=== PATIENT | male | born 1935 | race American Indian/Alaskan Native ===

== ENCOUNTER 2019-04-24 19:56 | Emergency (ER) | payer MEDICARE, OTHER ==
[~2019-04-24] VITALS: Ht 177.8 cm; Wt 81.7 kg
[~2019-04-24 19:56] MED LIST: Hydrocodone-Ap1 EA23 PO; Motion Sickness25 M1 PO; Percocet 10-321 EACH PO; SIMV40 PO; Valium5 MG PO; Zofran Odt4 MG SL
[2019-04-24 20:37] LABS: BASOPHILS ABSOLUTE AUTO 0.02 K/mm3 (0.00-0.23); BASOPHILS PERCENT AUTO 0 % (0-2); EOSINOPHILS ABSOLUTE AUTO 0.35 K/mm3 (0.00-0.68); EOSINOPHILS PERCENT AUTO 5 % (0-6); Hematocrit 40.8 % (37.0-53.0); Hemoglobin 13.5 g/dL (13.5-17.5); IMMATURE GRAN ABSOLUTE AUTO 0.01 K/mm3 (0.00-0.10); IMMATURE GRAN PERCENT AUTO 0 % (0-1); LYMPHOCYTES PERCENT AUTO 19 % (21-46); MONOCYTES ABSOLUTE AUTO 0.44 K/mm3 (0.16-1.47); MONOCYTES PERCENT AUTO 6 % (4-13); Mean Corpuscular HGB 32.3 pg (26.0-34.0); Mean Corpuscular HGB Conc 33.1 g/dL (31.5-36.5); Mean Corpuscular Volume 98 fL (80-100); Mean Platelet Volume 9.9 fL (9.1-12.4); NEUTROPHILS ABSOLUTE AUTO 5.25 K/mm3 (1.96-9.15); NEUTROPHILS PERCENT AUTO 70 % (41-73); Platelet Count 253 K/mm3 (150-400); RDW Standard Deviation 43.3 fL (35.1-46.3); Red Blood Cell Count 4.18 M/mm3 (4.30-5.90); White Blood Cell Count 7.47 K/mm3 (4.00-11.30)
[2019-04-24 20:55] LABS: Alanine Aminotransfer (ALT/SGP 25 U/L (12-78); Albumin, Blood 3.6 g/dL (3.4-5.0); Alk Phos 81 U/L (50-136); Anion Gap 4 mmol/L (6-16); Aspartate Aminotrans (AST/SGOT 19 U/L (12-37); Bilirubin, Total 0.3 mg/dL (0.1-1.0); Blood Urea Nitrogen 16 mg/dL (8-24); Bun/Creatinine Ratio 18.4 (12.0-20.0); CO2, Blood 28 mmol/L (21-32); Calcium, Blood 8.9 mg/dL (8.5-10.1); Chloride, Blood 108 mmol/L (98-108); Creatinine, Blood 0.87 mg/dL (0.60-1.20); Globulin, Blood 3.5 g/dL (2.2-4.0); Glomerular Filtration Rate >60 (60-); Glucose, Blood 181 mg/dL (70-99); Potassium, Blood 3.9 mmol/L (3.5-5.5); Sodium, Blood 140 mmol/L (136-145); Total Protein, Blood 7.1 g/dL (6.4-8.2)
[2019-04-24 22:32] LABS: Source, Urine Clean Catch
[2019-04-24 22:36] LABS: Bilirubin, Urine Neg (Neg); Blood, Urine 4+ (Neg); Glucose Qualitative, Urine Neg (Neg); Ketones, Urine 1+ (Neg); Leukocyte Esterase, Urine 1+ (Neg); Nitrite, Urine Neg (Neg); Protein, Urine 1+ (Neg); Specific Gravity, Urine 1.025 (1.003-1.022); Urobilinogen, Urine NORM (Normal)
[2019-04-24 22:45] LABS: Appearance, Urine Hazy (Clear); Color, Urine Yellow (P-Yellow)
[2019-04-24 22:46] LABS: Bacteria Rare /hpf; Mucus Mod (0-Heavy); Red Blood Cells, Urine TNTC /hpf (0-2); Squamous Epithelial Cells Not Seen /hpf (Few)
[2019-04-24] MEDS ORDERED: Percocet 5-3251 EACH PO (23:19)
[2019-04-24] MEDS ORDERED: ONDA4ODT MM (23:19)
== END 2019-04-25 00:07 | disposition home or self-care (01) ==
LOC: ER 19:56
PROVIDERS: Emergency Medicine
DX: N13.2 Hydronephrosis with renal and ureteral calculous obstruction (principal); Z87.442 Personal history of urinary calculi; Z79.899 Other long term (current) drug therapy
CPT/HCPCS: 36415; 74176; 80053; 81001; 85025; 96361; 96374; 96375; 99284-25; A9270; A9270-GY; J1170; J1885; J2405; J7030

== ENCOUNTER 2022-02-05 08:28 | Inpatient (IN) | payer MEDICARE, OTHER ==
[~2022-02-05] VITALS: Ht 177.8 cm; Wt 77.9 kg
[~2022-02-05 08:28] MED LIST changes: +BLINK EYE DROPS BOTHEYES; +HYDSUL200 PO; +MULVITA PO; +ONDA4ODT MM; +Percocet 5-3251 EACH PO; +TURMERIC500 M2 PO; +Vitamin B-12100 MCG PO; +ZINC15 PO; +[UNRECOGNIZED DRUG - OTHER] BOTHEYES; +[UNRECOGNIZED DRUG - OTHER] PO
[2022-02-06 05:47] LABS: BASOPHILS ABSOLUTE AUTO 0.01 K/mm3 (0.00-0.23); BASOPHILS PERCENT AUTO 0 % (0-2); EOSINOPHILS PERCENT AUTO 0 % (0-6); Hematocrit 35.1 % (37.0-53.0); Hemoglobin 11.6 g/dL (13.5-17.5); IMMATURE GRAN ABSOLUTE AUTO 0.03 K/mm3 (0.00-0.10); IMMATURE GRAN PERCENT AUTO 0 % (0-1); LYMPHOCYTES ABSOLUTE AUTO 0.51 K/mm3 (0.84-5.20); LYMPHOCYTES PERCENT AUTO 5 % (21-46); MONOCYTES ABSOLUTE AUTO 0.52 K/mm3 (0.16-1.47); MONOCYTES PERCENT AUTO 5 % (4-13); Mean Corpuscular Volume 97 fL (80-100); Mean Platelet Volume 10.7 fL (9.1-12.4); NEUTROPHILS ABSOLUTE AUTO 8.48 K/mm3 (1.96-9.15); NEUTROPHILS PERCENT AUTO 89 % (41-73); Platelet Count 201 K/mm3 (150-400); RDW Coefficient Variation 12.2 % (11.7-14.2); RDW Standard Deviation 43.7 fL (35.1-46.3); Red Blood Cell Count 3.62 M/mm3 (4.30-5.90); White Blood Cell Count 9.55 K/mm3 (4.00-11.30)
[2022-02-06 05:49] LABS: Bun/Creatinine Ratio 28.1 (12.0-20.0); Calcium, Blood 8.7 mg/dL (8.5-10.1); Creatinine, Blood 0.82 mg/dL (0.60-1.20); Potassium, Blood 4.9 mmol/L (3.5-5.5)
== END 2022-02-06 10:40 | disposition home or self-care (01) | DRG 483 ==
LOC: SURS 08:28 → PRE IP 10:00 → SURS 16:21
PROVIDERS: ADMIT Orthopaedic Surgery
PROC: 0RRJ0JZ Replacement of Right Shoulder Joint with Synthetic Substitute, Open Approach (ICD-10-PCS; principal; 2022-02-05 10:00)
DX: M19.011 Primary osteoarthritis, right shoulder (principal); Z87.442 Personal history of urinary calculi; G47.30 Sleep apnea, unspecified; M35.3 Polymyalgia rheumatica; Z90.49 Acquired absence of other specified parts of digestive tract; Z98.890 Other specified postprocedural states; Z96.651 Presence of right artificial knee joint; Z79.899 Other long term (current) drug therapy; Z88.8 Allergy status to other drugs, medicaments and biological substances
CPT/HCPCS: 36415; 73030; 80048; 85025; 97110; 97161; 97165; 97530; 97535; A9270; C1713; C1776; J0171; J0690; J0735; J1100; J1885; J2370; J2405; J2704; J2795; J3010; J7120

== ENCOUNTER → 2022-06-25 | Outpatient (CLI) | payer MEDICARE, OTHER | LOC: LAB 07:56 → PLD 07:56 → LAB SHORT 07:56 | DX: L72.11 Pilar cyst (principal) | CPT/HCPCS: 88304 ==

== ENCOUNTER 2025-01-23 08:23 | Observation (INO) | payer MEDICARE, OTHER ==
[~2025-01-23] VITALS: Ht 177.8 cm; Wt 75.8 kg
[~2025-01-23 08:23] MED LIST changes: +LOSARTAN POTASS25 M2 PO
[2025-01-23 09:22] LABS: BASOPHILS ABSOLUTE AUTO 0.01 K/mm3 (0.00-0.23); BASOPHILS PERCENT AUTO 0 % (0-2); EOSINOPHILS ABSOLUTE AUTO 0.05 K/mm3 (0.00-0.68); EOSINOPHILS PERCENT AUTO 1 % (0-6); Hematocrit 37.9 % (37.0-53.0); Hemoglobin 12.9 g/dL (13.5-17.5); IMMATURE GRAN ABSOLUTE AUTO 0.02 K/mm3 (0.00-0.10); IMMATURE GRAN PERCENT AUTO 0 % (0-1); LYMPHOCYTES ABSOLUTE AUTO 0.46 K/mm3 (0.84-5.20); LYMPHOCYTES PERCENT AUTO 8 % (21-46); MONOCYTES PERCENT AUTO 5 % (4-13); Mean Corpuscular HGB 33.2 pg (26.0-34.0); Mean Corpuscular Volume 98 fL (80-100); Mean Platelet Volume 10.2 fL (9.1-12.4); NEUTROPHILS ABSOLUTE AUTO 5.18 K/mm3 (1.96-9.15); NEUTROPHILS PERCENT AUTO 86 % (41-73); Platelet Count 215 K/mm3 (150-400); RDW Coefficient Variation 12.9 % (11.7-14.2); RDW Standard Deviation 46.2 fL (35.1-46.3); Red Blood Cell Count 3.88 M/mm3 (4.30-5.90); White Blood Cell Count 6.02 K/mm3 (4.00-11.30)
[2025-01-23] MEDS ORDERED: Ondansetron HCl 2 MG / ML 2ML Vial IV ONE (09:25)
[2025-01-23] MEDS ORDERED: NS 1,000 ML IV SCH (09:25)
[2025-01-23] MEDS ORDERED: Magnesium Sulf 2 GM/Water 50ML 50 ML IV ONE (09:25)
[2025-01-23 09:35] LABS: Albumin, Blood 3.1 g/dL (3.4-5.0); Albumin/Globulin Ratio 0.9 (0.8-1.8); Bilirubin, Total 0.8 mg/dL (0.1-1.0); Bun/Creatinine Ratio 32.4 (12.0-20.0); Calcium, Blood 8.5 mg/dL (8.5-10.1); Creatinine, Blood 1.11 mg/dL (0.60-1.20); Globulin, Blood 3.5 g/dL (2.2-4.0); Magnesium, Blood 2.5 mg/dL (1.6-2.4); Potassium, Blood 4.3 mmol/L (3.5-5.5); Total Protein, Blood 6.6 g/dL (6.4-8.2)
[2025-01-23 10:25] LABS: Influenza A, PCR NEGATIVE (NEGATIVE); Influenza B, PCR NEGATIVE (NEGATIVE); Resp Syncytial Virus, PCR NEGATIVE (NEGATIVE); SARS-Cov-2 (COVID-19) PCR, MMC NEGATIVE (NEGATIVE)
[2025-01-23 11:38] LABS: Source, Urine Clean Catch
[2025-01-23 11:45] LABS: Bilirubin, Urine Neg (Neg); Blood, Urine Neg (Neg); Glucose Qualitative, Urine Neg (Neg); Ketones, Urine Neg (Neg); Leukocyte Esterase, Urine Neg (Neg); Nitrite, Urine Neg (Neg); Protein, Urine 2+ (Neg); Specific Gravity, Urine 1.025 (1.003-1.022); Urobilinogen, Urine NORM (Normal)
[2025-01-23 11:51] LABS: Appearance, Urine Clear (Clear); Color, Urine Yellow (P-Yellow)
[2025-01-23 11:53] LABS: Bacteria Not Seen /hpf; Mucus Light (0-Heavy); Red Blood Cells, Urine Not Seen /hpf (0-2); Squamous Epithelial Cells Few /hpf (Few); White Blood Cells, Urine 0-2 /hpf (0-5)
[2025-01-23 20:36] VITALS: BP 137/51
[2025-01-23] MEDS ORDERED: Metoprolol Tartrate 25 MG Tab PO SCH (21:00)
[2025-01-23 23:52] VITALS: BP 111/57
[2025-01-24 04:08] VITALS: BP 122/43
--- NOTE | 2025-01-24 05:27 | NUR ---
SHIFT SUMMARY PT ADMITTED LAST EVENING FOR FATIGUE, WEAKNESS, AND BRADYCARDIA. PT ON TELEMETRY WITH SINUS RHYTHM WITH PVC'S AND OCCASSIONAL RUNS OF BIGEMINY. PVC'S NOT PURFUSING WITH APICAL AND RADIAL PULSE DOWN TO THE 30'S AND 40'S. PT STATES SOME DIZZINESS UPON STANDING, BUT UNSURE IF IT IS DUE TO HIS HEART RATE OR VERTIGO. PT KEPT ON BEDREST EXCEPT STANDING TO VOID AT SIDE OF BED WITH SBA. BED IN LOWEST POSITION, BED ALARM ON, CALL LIGHT WITHIN REACH, SIDERAILS UP X2.
[2025-01-24 07:17] LABS: BASOPHILS PERCENT AUTO 0 % (0-2); EOSINOPHILS ABSOLUTE AUTO 0.12 K/mm3 (0.00-0.68); EOSINOPHILS PERCENT AUTO 3 % (0-6); Hematocrit 36.1 % (37.0-53.0); Hemoglobin 12.1 g/dL (13.5-17.5); IMMATURE GRAN ABSOLUTE AUTO 0.01 K/mm3 (0.00-0.10); IMMATURE GRAN PERCENT AUTO 0 % (0-1); LYMPHOCYTES ABSOLUTE AUTO 1.01 K/mm3 (0.84-5.20); LYMPHOCYTES PERCENT AUTO 23 % (21-46); MONOCYTES ABSOLUTE AUTO 0.53 K/mm3 (0.16-1.47); MONOCYTES PERCENT AUTO 12 % (4-13); Mean Corpuscular HGB 33.2 pg (26.0-34.0); Mean Corpuscular HGB Conc 33.5 g/dL (31.5-36.5); Mean Corpuscular Volume 99 fL (80-100); Mean Platelet Volume 10.2 fL (9.1-12.4); NEUTROPHILS ABSOLUTE AUTO 2.79 K/mm3 (1.96-9.15); NEUTROPHILS PERCENT AUTO 63 % (41-73); Platelet Count 186 K/mm3 (150-400); RDW Coefficient Variation 12.7 % (11.7-14.2); RDW Standard Deviation 46.1 fL (35.1-46.3); Red Blood Cell Count 3.65 M/mm3 (4.30-5.90); White Blood Cell Count 4.46 K/mm3 (4.00-11.30)
[2025-01-24 07:20] VITALS: BP 117/65
[2025-01-24 07:43] LABS: Bun/Creatinine Ratio 34.8 (12.0-20.0); Calcium, Blood 8.2 mg/dL (8.5-10.1); Creatinine, Blood 0.98 mg/dL (0.60-1.20); Potassium, Blood 4.1 mmol/L (3.5-5.5)
[2025-01-24] MEDS ORDERED: Atorvastatin 10 MG Tab PO SCH (09:00)
[2025-01-24] MEDS ORDERED: Enoxaparin 40 MG/0.4 ML SYR SC SCH (09:00)
--- NOTE | 2025-01-24 09:00 | NUR ---
pt laying in bed awake a/ox4, but can be forgetful, pleasant and cooperative with care, follows commands well, denies pain, lungs are clear t/o,, resp even and unlabored, on r/a, no cough noted, hrr, tele in place running sr with bj pvcs rates drops low to 30's during the night, and 40's this am, piv to lac site is clear and patent, btx4, abd flat soft nontender, voids without diff, maew, ambulates with walker at baseline, does get some dizziness when up per report, bed alarm is activated, faviola, call light in reach.
[2025-01-24 11:38] VITALS: BP 136/67
[2025-01-24] MEDS ORDERED: METO25 PO (14:26)
--- NOTE | 2025-01-24 15:18 | NUR ---
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
== END 2025-01-24 15:00 | disposition home health service (06) ==
LOC: ER 08:23 → MEDS 14:34 → ERHOLD 14:34 → MEDS 20:34
PROVIDERS: Student in an Organized Health Care Education/Training Program; ADMIT Internal Medicine
DX: I49.3 Ventricular premature depolarization (principal); I10 Essential (primary) hypertension; H81.10 Benign paroxysmal vertigo, unspecified ear; G47.33 Obstructive sleep apnea (adult) (pediatric); G25.0 Essential tremor; N40.0 Benign prostatic hyperplasia without lower urinary tract symptoms; E78.5 Hyperlipidemia, unspecified; R73.03 Prediabetes; M79.7 Fibromyalgia; M06.9 Rheumatoid arthritis, unspecified; M48.00 Spinal stenosis, site unspecified; R53.83 Other fatigue; Z88.8 Allergy status to other drugs, medicaments and biological substances; Z79.899 Other long term (current) drug therapy
CPT/HCPCS: 0241U; 36415; 71045; 80048; 80053; 81001; 83735; 83880; 84484; 85025; 93005; 93010; 96365; 96366; 96372; 96375; 97110; 97116; 97162; 99285-25; A9270; G0378; J1650; J2405; J3475; J7030

== ENCOUNTER 2025-01-26 10:42 | Emergency (ER) | payer MEDICARE, OTHER ==
[~2025-01-26] VITALS: Ht 177.8 cm; Wt 77.6 kg
[~2025-01-26 10:42] MED LIST changes: +METO25 PO
[2025-01-26 11:38] LABS: BASOPHILS ABSOLUTE AUTO 0.01 K/mm3 (0.00-0.23); BASOPHILS PERCENT AUTO 0 % (0-2); EOSINOPHILS ABSOLUTE AUTO 0.16 K/mm3 (0.00-0.68); EOSINOPHILS PERCENT AUTO 3 % (0-6); Hematocrit 34.9 % (37.0-53.0); Hemoglobin 11.5 g/dL (13.5-17.5); IMMATURE GRAN ABSOLUTE AUTO 0.01 K/mm3 (0.00-0.10); IMMATURE GRAN PERCENT AUTO 0 % (0-1); LYMPHOCYTES ABSOLUTE AUTO 1.48 K/mm3 (0.84-5.20); LYMPHOCYTES PERCENT AUTO 28 % (21-46); MONOCYTES ABSOLUTE AUTO 0.45 K/mm3 (0.16-1.47); MONOCYTES PERCENT AUTO 8 % (4-13); Mean Corpuscular HGB 32.4 pg (26.0-34.0); Mean Corpuscular Volume 98 fL (80-100); Mean Platelet Volume 10.4 fL (9.1-12.4); NEUTROPHILS ABSOLUTE AUTO 3.27 K/mm3 (1.96-9.15); NEUTROPHILS PERCENT AUTO 61 % (41-73); Platelet Count 214 K/mm3 (150-400); RDW Coefficient Variation 12.5 % (11.7-14.2); RDW Standard Deviation 45.3 fL (35.1-46.3); Red Blood Cell Count 3.55 M/mm3 (4.30-5.90); White Blood Cell Count 5.38 K/mm3 (4.00-11.30)
[2025-01-26 11:42] LABS: Albumin, Blood 3.1 g/dL (3.4-5.0); Albumin/Globulin Ratio 0.9 (0.8-1.8); Bilirubin, Total 0.6 mg/dL (0.1-1.0); Bun/Creatinine Ratio 20.5 (12.0-20.0); Calcium, Blood 8.1 mg/dL (8.5-10.1); Creatinine, Blood 0.83 mg/dL (0.60-1.20); Globulin, Blood 3.5 g/dL (2.2-4.0); Potassium, Blood 3.8 mmol/L (3.5-5.5); Total Protein, Blood 6.6 g/dL (6.4-8.2)
--- NOTE | 2025-01-26 12:23 | NUR ---
Pt. is in ED19 when he welcomes my visit. Pts. spouse and son are present at bedside. The family at bedside display evidence of disunity that has deep roots. This weigh and charge worker sought to mediate the tensions by focusing on Pt. care. Dr. David came for an assessment. Afterward this weigh and charge worker sought to diffuse the tension by speaking to Spouse and son separately. 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 Spouse verbalized concern about spritual differences she has with her children that have never been resolved. This weigh and charge worker prayed with the Pt. and will be available to the Pt. and family.
[2025-01-26 13:05] VITALS: BP 137/65
== END 2025-01-26 13:17 | disposition home or self-care (01) ==
LOC: ER 10:42
PROVIDERS: Emergency Medicine
DX: I49.3 Ventricular premature depolarization (principal); R42 Dizziness and giddiness; I10 Essential (primary) hypertension; E78.5 Hyperlipidemia, unspecified; M35.3 Polymyalgia rheumatica; M06.9 Rheumatoid arthritis, unspecified; N40.0 Benign prostatic hyperplasia without lower urinary tract symptoms; R73.03 Prediabetes; Z88.8 Allergy status to other drugs, medicaments and biological substances; Z79.899 Other long term (current) drug therapy
CPT/HCPCS: 80053; 83690; 84484; 85025; 93005; 93010; 99284-25

== ENCOUNTER 2025-06-08 08:47 | Observation (INO) | payer MEDICARE, OTHER ==
[~2025-06-08] VITALS: Ht 177.8 cm; Wt 75.3 kg
[2025-06-08] VITALS (13 sets, daily range): BP systolic 131–201; BP diastolic 46–102
[~2025-06-08 08:47] MED LIST changes: +Crestor40 MG PO; +DICLOFENAC SOD2.5 M1; +Hair, Skin & N1 EACH PO; +MAG GLYCINATE100 MG PO; +OMEGA PO; +[UNRECOGNIZED DRUG - OTHER] PO
[2025-06-08] MEDS ORDERED: NS 500 ML IV ONE (10:00)
[2025-06-08] MEDS ORDERED: NS 1,000 ML IV ONE ×2 (11:54)
[2025-06-08] MEDS ORDERED: CeFAZolin Sodium 2,000 MG VIAL ONE (11:54)
[2025-06-08] MEDS ORDERED: Heparin Sodium 1000 Units/ML 10ML MDV ONE (11:54)
[2025-06-08] MEDS ORDERED: NS 50 ML IV ONE (11:55)
[2025-06-08] MEDS ORDERED: Bupivacaine 0.5% HCl 5 MG/ML 30MLVIAL ONE (12:01)
[2025-06-08] MEDS ORDERED: FentaNYL Citrate 50 MCG/ML 2 ML Injection ONE (12:34)
[2025-06-08] MEDS ORDERED: Midazolam HCl 1MG / ML 2ML Vial ONE (12:34)
[2025-06-08] MEDS ORDERED: HYDROcodone 5-APAP 325 TAB PO PRN (14:10)
--- NOTE | 2025-06-08 14:18 | NUR ---
ARRIVAL TO ICU PT BROUGHT TO ICU 14 AT THIS TIME BY REGULATORY AFFAIRS ASSOCIATE STAFF. PT IS ALERT AND ORIENTED WITH PLEASANT AFFECT. PACEMAKER SITE HAS C/D/I DRESSING. DENIES CP. L ARM IMMOBILIZER PLACED. HE IS ON RA WITH SPO2 >94%. DENIES SOB. PT ASSISTED TO STAND AT BEDSIDE TO VOID. BED IN LOW POSITION, CALL LIGHT AND FAMILY AT BEDSIDE.
[2025-06-08] MEDS ORDERED: HydrALAZINE HCl 20 MG / ML 1ML Vial IV PRN (14:45)
--- NOTE | 2025-06-08 16:52 | NUR ---
Pt. is resting in bed but responds when I come in the room. Pt. displays evidence of being tired, but his countenance brightens when the portable track line marker comes to bedside. This portable track line marker knows this Pt. from previous hospital visits. Facilitated an update and listened with interest and empathy. Pt. verbalizes an expectation of being able to go home in the morning. Listen wiith emapthy and seek to normalize the Pt. experience. Prayed with the Pt. Pt. verbalized gratitude for the spiritual care visit and welcomed this portable track line marker to return.
--- NOTE | 2025-06-08 17:15 | NUR ---
SHIFT SUMMARY PATIENT A&OX4 AND ABLE TO MAKE NEEDS KNOWS. PATIENT USES CALL LIGHT APPROPRIATELY AND MOVES ALL LIMBS SPONTANEOUSLY WITH EXCEPTION LEFT ARM IN SLING D/T NEW PACE MAKER PLACEMENT. HR SINUS IN THE 70S, DUAL PACED. PACE MAKER SITE C/D/I. BP STABLE WITH MAPS >65. PATIENT ON RA WITH SPO2 >94%. PATIENT USED URINAL STANDING AT SIDE OF BED WITH ASSISTANCE WITH YELLOW URINE OUT. NO BM THIS SHIFT. WAS UPDATED ON PLAN OF CARE. CALL LIGHT NEAR.
[2025-06-08] MEDS ORDERED: CeFAZolin Sodium 2,000 MG in NS 100 ML IV SCH (19:00)
--- NOTE | 2025-06-08 21:22 | NUR ---
ASSUMPTION OF CARE CARE OF PT ASSUMED FOLLOWING BEDSIDE SHIFT REPORT FROM DAY RN. PT LYING IN BED IN NO APPARENT DISTRESS. AFEBRILE. PAIN IS 5/10 AROUND PACER SITE. PACED RHYTHM 67 BPM, SET AT 60. BP STABLE AT 146/58. NO CHEST PAIN/PRESSSURE OR SOB. RA WITH SATURATION > 92%. CPAP AT HOME; WILL PUT ON WHEN SLEEP TIME. DRESSING FOR PACER SITE IS C/D/I AND SOFT BUT TENDER AROUND IT. LET ARM IMMOBILIZATION SLING IS IN PLACE. PT IS CIRCLE AND NO HEARING AID WITH HIM. WILL REVIEW AND CONTINUE PLAN OF CARE.
[2025-06-09] VITALS (9 sets, daily range): BP systolic 125–162; BP diastolic 58–83
[2025-06-09 03:38] LABS: Hematocrit 35.9 % (37.0-53.0); Hemoglobin 12.0 g/dL (13.5-17.5); Mean Corpuscular HGB Conc 33.4 g/dL (31.5-36.5); Mean Corpuscular Volume 98 fL (80-100); NRBC ABSOLUTE 0.00 K/mm3 (0.00-0.02); NRBC Auto 0.0 /100 WBC (0.0-0.2); Platelet Count 189 K/mm3 (150-400); RDW Coefficient Variation 12.1 % (11.7-14.2); RDW Standard Deviation 43.5 fL (35.1-46.3)
[2025-06-09 04:00] LABS: Anion Gap 7.0 mmol/L (3-11); Blood Urea Nitrogen 16.0 mg/dL (8-24); CO2, Blood 28.0 mmol/L (21-32); Calcium, Blood 8.6 mg/dL (8.5-10.1); Chloride, Blood 106.0 mmol/L (98-108); Creatinine, Blood 0.78 mg/dL (0.60-1.20); Glucose, Blood 141.0 mg/dL (70-99); Potassium, Blood 4.0 mmol/L (3.5-5.5); Sodium, Blood 137.0 mmol/L (136-145)
--- NOTE | 2025-06-09 07:02 | NUR ---
SHIFT SUMMARY PT LYING IN BED IN NO APPARENT DISTRESS. AFEBRILE. MAEW THOUGH MOVES SLOW DUE TO LEFT ARM IMMOBILIZATION SLING. PT IN PACED RHYTHM WITH PVCS AND PAC'S. BP STABLE TO MILDLY ELEVATED. PT ON RA WITH SAT > 92%. NO CHEST PAIN/PRESSURE. NO SOB. NO BM DURING SHIFT. URINE OUTPUT 600ML. BEDSIDE SHIFT REPORT GIVEN TO DAY RN.
[2025-06-09] MEDS ORDERED: DICLOFENAC SOD BOTHEYES SCH (09:00)
--- NOTE | 2025-06-09 10:42 | NUR ---
DISCHARGE NOTE: ASSUMED CARE OF PT AT 0700, PT IS ALERT AND ORIENTED X 4, ABLE TO COMMUNICATE NEEDS. PT DENIES PAIN AT THIS TIME. PT DUAL PACED, HR 60'S, BP STABLE. PT REMAINS ON RA, NO RESP DISTRESS NOTED. PT TOLERATING PO INTAKE. USING URINAL AT BEDSIDE WITH 1 PERSON ASSIST. L CHEST PACEMAKER SITE DRESSING IS C/D/I. DISCHARGE INSTRUCTIONS PROVIDED TO PT AND SPOUSE, ALL QUESTIONS ANSWERED. BELONGINGS RETURNED, IV REMOVED. PT WHEELED OUT TO CAR VIA WHEELCHAIR, DISCHARGED AT 1020.
== END 2025-06-09 10:26 | disposition home or self-care (01) ==
LOC: MHTC 08:47 → PCU 08:59 → ICUE 08:59 → MHTC 09:00 → ICUE 14:15
PROVIDERS: ADMIT Internal Medicine Cardiovascular Disease
DX: I49.5 Sick sinus syndrome (principal); I49.3 Ventricular premature depolarization; E78.00 Pure hypercholesterolemia, unspecified; I44.1 Atrioventricular block, second degree; I10 Essential (primary) hypertension; R00.1 Bradycardia, unspecified; M19.90 Unspecified osteoarthritis, unspecified site; Z79.899 Other long term (current) drug therapy; Z88.8 Allergy status to other drugs, medicaments and biological substances
CPT/HCPCS: 33208; 36415; 71046; 80048; 82947; 85027; 93005; 93010; 94660; 94760; 94762; 99152; 99153; A9270; C1785; C1898; J0360; J0690; J1644; J2250; J3010; J7030; J7040; Q9967